=== PATIENT | female | born 1980 | race Caucasian/White ===

== ENCOUNTER 2017-03-30 06:09 | Emergency (ER) | payer OTHER ==
--- NOTE | ~2017-03-30 | CR172 ---
[facility] A Service of [facility] & [facility] / [facility] RADIOLOGY TEXT RESULTS PATIENT: VICENTA SILVEIRA LOCATION: [facility] : 78 UNIT #: [id number] AGE: [address]: Vasquez Schmitz MD SEX: F ORDER DR: [id number] [facility] [address] [place], [place] [address] [id number] E MR#: [id number] Acc #: [id number] NAME: VICENTA SILVEIRA : 1980 SEX: F STUDY DATE/TIME: 03/30/2017 6:37 UNIT: [facility] ROOM: STUDY DESCRIPTION: CR Knee 3 Views Lt Attending Physician: Vasquez Schmitz M.D. Ordering Physician: Ed Hayden Joel M.D. Primary Care Physician: No Primary Care Physician MEDICAL IMAGING REPORT This report is preliminary unless electronic signature is present EXAM Left knee, 03/30 HISTORY Left side medial knee pain after fall 2 days ago. FINDINGS Three views of the left knee were obtained. No comparison. There is mild patellofemoral and medial compartment osteoarthritis. No fracture or malalignment is seen. There is no joint effusion. IMPRESSION Medial and patellofemoral compartment osteoarthritis. No acute findings in the knee. Dictated by... Villa Kramer Jr., M.D. THIS IS AN ELECTRONICALLY VERIFIED REPORT Villa Kramer Jr., M.D. at 03/31/2017 6:06 AM JENNIFER/michael TD: 03/30/2017 10:46 JOB #: [id number] MEDICAL IMAGING REPORT Page 1 of 1 COPY
[~2017-03-30 06:09] MED LIST: AMOXICILLIN PO; DELSYM30 MG/5 M1 PO; FLEXERIL PO; IBUPROFEN800 MG PO; INDOMETHACIN1 MG PO; LORTAB 10/500 T1 TAB PO; MEDROL PO; MOUTH CLEANSER15 ML MM; NO MEDICATIONS; PERCOCET 7.5-31 EACH PO; PERCOCET5/325 PO; PHENERGAN25 M1 PO; VICODIN PO; ZITHROMAX1 G/PKT PO
== END 2017-03-30 08:15 | disposition home or self-care (01) ==
LOC: CED 06:09
DX: S83.92XA Sprain of unspecified site of left knee, initial encounter (principal); Z98.51 Tubal ligation status; Z98.890 Other specified postprocedural states; Z91.09 Other allergy status, other than to drugs and biological substances; W19.XXXA Unspecified fall, initial encounter; Y92.009 Unspecified place in unspecified non-institutional (private) residence as the place of occurrence of the external cause
CPT/HCPCS: 29530; 73562; 84703; 99283; 99284